=== PATIENT | male | born 1950 | race Caucasian/White ===

== ENCOUNTER 2018-11-09 08:10 | Outpatient (CLI) | payer MEDICARE, BC ==
--- NOTE | 2018-11-09 10:07 | ULT ---
THYROID ULTRASOUND: Date: 11/09/18 HISTORY: Large lump on neck. FINDINGS: Real-time imaging of the right and left lobes of the gland were performed. The right lobe measures 1. 3 x 1.3 x 4.5 cm. The left lobe measures 4.3 x 5.2 x 6.3 cm. The left lobe of the gland is largely re placed by a very large 4.1 x 5.2 cm nodule. The nodule has a solid component and an internal cystic c omponent. On the right side, there are some small, subcentimeter nodules present. The large left lobe thyroid nodule has echogenicity similar to the residual gland. It is wider than t all with smooth borders and no definite calcifications. It would correspond to a TIRADS 3 lesion. IMPRESSION: TIRADS 3 left lobe thyroid node, basically replacing the entire gland. It has a prominent internal cy stic component which is probably related to degeneration. For a nodule of this size, the recommendati on is fine needle aspiration. POS: [facility]
== END 2018-11-09 08:11 | disposition home or self-care (01) ==
LOC: SCSULT 08:10 → EDUNIT# 08:10 → SCSULT 08:11
PROVIDERS: ATTEND Specialist
DX: E01.0 Iodine-deficiency related diffuse (endemic) goiter (principal); E04.1 Nontoxic single thyroid nodule
CPT/HCPCS: 76536

== ENCOUNTER 2019-01-17 09:59 | Day surgery (SDC) | payer MEDICARE, BC ==
[2019-01-16 09:42] VITALS: BMI 34.7
[2019-01-17 10:49] LABS: Hemoglobin 15.3 g/dL (14.0-18.0)
[2019-01-17 11:08] LABS: Anion Gap 13 mmol/L (10-20); BUN (Urea Nitrogen) 12 mg/dL (8.4-25.7); Calc. Creatinine Clearance 155 mL/min (70-130); Calcium 9.2 mg/dL (7.8-10.44); Carbon Dioxide 27 mmol/L (23-31); Chloride 106 mmol/L (98-107); Estimated GFR-MDRD Greater than 90; Glucose 120 mg/dL (80-115); Potassium 4.6 mmol/L (3.5-5.1); Sodium 141 mmol/L (136-145)
[2019-01-17] MEDS ORDERED: Lidocaine 1% w/Epinephrine 1:100K 20 ML VIAL ONE (12:06)
[2019-01-17] MEDS ORDERED: Fentanyl 250 MCG/5 ML VIAL ONE (12:15)
[2019-01-17] MEDS ORDERED: HYDROmorphone 0.5 MG/0.5 ML SYRINGE ONE (13:44)
[2019-01-17] MEDS ORDERED: PROPOFOL 20 ML ONE (13:58)
[2019-01-17] MEDS ORDERED: PHENYLEPHRINE-NS 100 MCG/ML 10 ML SYRINGE ONE (14:53)
[2019-01-17] MEDS ORDERED: Dexamethasone 20 MG/5 ML VIAL ONE (14:53)
[2019-01-17] MEDS ORDERED: PROPOFOL 200 MG/20 ML VIAL ONE (14:53)
[2019-01-17] MEDS ORDERED: Succinylcholine Chloride 20 MG/ML 10 ml SYRINGE FS ONE (14:53)
[2019-01-17] MEDS ORDERED: ePHEDrine/0.9% NaCl/PF SYRINGE 50 mg/10 ml ONE (14:53)
[2019-01-17] MEDS ORDERED: Ondansetron PF 4 MG/2 ML Vial ONE (14:53)
[2019-01-17] MEDS ORDERED: Esmolol 100 MG/10 ML VIAL ONE (14:53)
[2019-01-17] MEDS ORDERED: Rocuronium Bromide 10 MG/ML (10ML VIAL) ONE (14:53)
[2019-01-17] MEDS ORDERED: Lidocaine 1% PF 5 ML VIAL ONE (14:53)
[2019-01-17] MEDS ORDERED: Fentanyl 100 MCG/2 ML VIAL ONE ×3 (15:07→16:12)
[2019-01-17] MEDS ORDERED: Labetalol HCl 100 MG/20 ML VIAL ONE (16:04)
[2019-01-17] MEDS ORDERED: traMADol HCl 50 MG TAB ONE (17:25)
--- NOTE | 2019-01-18 14:10 | OP ---
DATE OF PROCEDURE: PREOPERATIVE DIAGNOSIS: Left thyroid mass. POSTOPERATIVE DIAGNOSIS: Left thyroid mass. PROCEDURES PERFORMED: 1. Left thyroid lobectomy. 2. Laryngeal nerve monitoring for 1 hour. PROCEDURE: The patient was identified, brought to the operating room, placed on the operating table in supine position. General endotracheal anesthesia was obtained. The patient was positioned for surgery. The neck was prepped and draped and the topical anatomy was delineated. The intended line of incision was demarcated with a marking pen and the area was infiltrated with 1% lidocaine with 1:100,000 epinephrine. We then made an incision with a 15 blade, carried down through the skin and subcutaneous tissues. The platysma was then transected and subplatysmal flaps were elevated inferiorly and superiorly. A self-retaining retractor was then placed and the strap muscles were divided in midline and attention was turned to the left thyroid lobe. It was markedly enlarged carefully. The strap muscles were dissected from the thyroid capsule. The inferior and superior vessels and middle thyroid vein were demarcated and suture ligated these structures and we have elected the large thyroid medially as this was identified and dissected free from the thyroid capsule. The thyroid was then rotated and delivered out of the wound and rotated medially as dissection continued along the pretracheal plane and thyroid ligament. The isthmus was suture ligated and the large lobe was evaluation. We then obtained hemostasis with bipolar cautery muscle was reapproximated skin with closed with 6-0 sterile dressing was applied. The patient was awakened and extubated and taken to recovery room in stable condition. The patient tolerated the procedure . Job ID: [id number]
== END 2019-01-17 18:15 | disposition home or self-care (01) ==
LOC: SDC 09:59
PROVIDERS: ATTEND Specialist
PROC: 0GBG0ZZ Excision of Left Thyroid Gland Lobe, Open Approach (ICD-10-PCS; principal; 2019-01-17)
DX: D34 Benign neoplasm of thyroid gland (principal); I48.91 Unspecified atrial fibrillation; I25.10 Atherosclerotic heart disease of native coronary artery without angina pectoris; M06.9 Rheumatoid arthritis, unspecified; E78.5 Hyperlipidemia, unspecified; N40.0 Benign prostatic hyperplasia without lower urinary tract symptoms; R73.03 Prediabetes; Z79.01 Long term (current) use of anticoagulants; Z79.84 Long term (current) use of oral hypoglycemic drugs; Z79.899 Other long term (current) drug therapy; Z88.2 Allergy status to sulfonamides
CPT/HCPCS: 36415; 80048; 85014; 85018; 88307; J0131; J1100; J1170; J2001; J2405; J2704; J3010

== ENCOUNTER 2022-04-19 11:29 | Outpatient (CLI) | payer MEDICARE, BC ==
[2022-04-19 12:49] LABS: Hemoglobin 15.7 g/dL (13.5-17.5); Mean Corpuscular HGB CONC 33.8 g/dL (32.0-36.0); Mean Corpuscular Hemoglobin 29.1 pg (27.0-33.0); Mean Corpuscular Volume 85.9 fl (81.2-95.1); Mean Platelet Volume 9.8 fl (7.4-10.4); Platelet Count 229 10x3/uL (150-450); RBC Distribution Width 13.1 % (11.5-14.5); White Blood Cell (WBC) Count 6.7 10x3/uL (3.5-10.5)
[2022-04-19 13:04] LABS: Anion Gap 13 mmol/L (10-20); BUN (Urea Nitrogen) 14 mg/dL (8.4-25.7); Calc. Creatinine Clearance 0 mL/min (70-130); Calcium 9.5 mg/dL (7.8-10.44); Carbon Dioxide 27 mmol/L (23-31); Chloride 102 mmol/L (98-107); Estimated GFR 85; Glucose 118 mg/dL (83-110); Potassium 4.3 mmol/L (3.5-5.1); Sodium 138 mmol/L (136-145)
== END 2022-04-19 11:30 | disposition home or self-care (01) ==
LOC: LABBT 11:29
PROVIDERS: ATTEND Specialist
DX: Z01.818 Encounter for other preprocedural examination (principal); K11.8 Other diseases of salivary glands; R22.1 Localized swelling, mass and lump, neck
CPT/HCPCS: 80048; 85027; 93005; 93010

== ENCOUNTER 2022-04-21 08:12 | Day surgery (SDC) | payer MEDICARE, BC ==
[2022-04-19 12:37] VITALS: BMI 35.3
[2022-04-21] MEDS ORDERED: fentaNYL PF 100 MCG/2 ML SYRINGE ONE (09:46)
[2022-04-21] MEDS ORDERED: EPINEPHrine 1 MG/ML AMP ONE (11:19)
[2022-04-21] MEDS ORDERED: Lidocaine 1% (PF) 30 ML VIAL ONE (11:19)
[2022-04-21] MEDS ORDERED: Esmolol 100 MG/10 ML VIAL ONE (11:46)
[2022-04-21] MEDS ORDERED: PROPOFOL 200 MG/20 ML VIAL ONE (11:46)
[2022-04-21] MEDS ORDERED: Glycopyrrolate 0.2 MG/ML 5 ML SYRINGE ONE (11:46)
[2022-04-21] MEDS ORDERED: Lidocaine 1% PF 5 ML VIAL ONE (11:46)
[2022-04-21] MEDS ORDERED: NEOSTIGMINE 3 MG/3 ML SYR 3 MG/3 ML SYRINGE ONE (11:46)
[2022-04-21] MEDS ORDERED: Rocuronium Bromide 10 MG/ML (10ML VIAL) ONE (11:46)
[2022-04-21] MEDS ORDERED: SUGAMMADEX SODIUM 200 MG/2 ML VIAL ONE (12:52)
[2022-04-21] MEDS ORDERED: Fentanyl 100 MCG/2 ML VIAL ONE (13:21)
[2022-04-21] MEDS ORDERED: traMADol HCl 50 MG TAB ONE ×2 (14:54→15:39)
[2022-04-21] MEDS ORDERED: Sodium Chloride 0.9% 0 ML ONE (14:54)
[2022-04-21] MEDS ORDERED: Dexamethasone 4 mg/ml Vial ONE (14:54)
== END 2022-04-21 16:34 | disposition home or self-care (01) ==
LOC: SDC 08:12
PROVIDERS: ATTEND Specialist
PROC: 0CJS8ZZ Inspection of Larynx, Via Natural or Artificial Opening Endoscopic (ICD-10-PCS; principal; 2022-04-21)
PROC: 0C983ZX Drainage of Right Parotid Gland, Percutaneous Approach, Diagnostic (ICD-10-PCS; 2022-04-21)
PROC: 07B20ZX Excision of Left Neck Lymphatic, Open Approach, Diagnostic (ICD-10-PCS; 2022-04-21)
DX: C77.0 Secondary and unspecified malignant neoplasm of lymph nodes of head, face and neck (principal); C73 Malignant neoplasm of thyroid gland; K11.8 Other diseases of salivary glands; E89.0 Postprocedural hypothyroidism; Z79.01 Long term (current) use of anticoagulants; Z79.84 Long term (current) use of oral hypoglycemic drugs; Z79.899 Other long term (current) drug therapy; Z88.2 Allergy status to sulfonamides
CPT/HCPCS: 10021; 31526; 38510; C1889; 88173; 88184; 88185; 88305; J0171; J1100; J2001; J2704; J3010; J3490

== ENCOUNTER 2022-06-10 00:34 | Inpatient (IN) | payer MEDICARE, BC ==
[2022-06-10] MEDS ORDERED: Diltiazem 125 MG/25 ML SDV ONE (00:41)
[2022-06-10] MEDS ORDERED: Ondansetron PF 4 MG/2 ML Vial IVP PRN (02:30)
[2022-06-10] MEDS ORDERED: Acetaminophen 325 MG TAB PO PRN (02:30)
[2022-06-10] MEDS ORDERED: Diltiazem 125 MG in Sodium Chloride 0.9% 100 ML IVPB SCH ×2 (02:30→11:01)
[2022-06-10] MEDS ORDERED: Dextrose 50% Abboject 50 ML SYRINGE SLOW IVP PRN (02:30)
[2022-06-10] MEDS ORDERED: Dextrose 5% in Water 1,000 ML IV PRN (02:30)
[2022-06-10] MEDS ORDERED: HumaLOG 300 UNITS/3 ML VIAL SC PRN ×2 (02:30)
[2022-06-10] MEDS ORDERED: Ondansetron ODT 4 MG TAB PO PRN (02:30)
[2022-06-10] MEDS ORDERED: Magnesium 2 GM/50 ML(in water) 2 GM in Premix Bag 1 BAG IVPB SCH (02:30)
[2022-06-10 03:20] LABS: #Eosinphils 0.2 thou/uL (0.0-0.7); #Lymphocytes 1.6 thou/uL (1.20-3.40); #Monocytes 1.1 thou/uL (0.11-0.59); #Neutrophils 9.8 thou/uL (1.40-6.50); %Basophils 0.2 % (0.0-1.0); %Eosinophils 1.5 % (0.0-10.0); %Lymphocytes 12.4 % (21.0-51.0); %Monocytes 8.5 % (0.0-10.0); %Neutrophils 77.4 % (42.0-75.0); Hemoglobin 14.4 g/dL (14.0-18.0); Mean Corpuscular HGB CONC 35.5 g/dL (32.0-36.0); Mean Corpuscular Hemoglobin 31.8 pg (27.0-31.0); Mean Corpuscular Volume 89.6 fl (78.0-98.0); Mean Platelet Volume 7.3 fL (7.4-10.4); Platelet Count 230 10x3/uL (130-400); RBC Distribution Width 12.3 % (11.5-14.5); Red Blood Cell (RBC) Count 4.53 mill/uL (4.70-6.10); White Blood Cell (WBC) Count 12.6 10x3/uL (4.8-10.8)
[2022-06-10 03:59] VITALS: BMI 34.8
[2022-06-10 04:00] LABS: ALT (SGPT) 18 U/L (8-55); AST (SGOT) 14 U/L (5-34); Albumin 3.7 g/dL (3.4-4.8); Alkaline Phosphatase 77 U/L (40-110); Anion Gap 17 mmol/L (10-20); BUN (Urea Nitrogen) 17 mg/dL (8.4-25.7); Bilirubin, Total 2.1 mg/dL (0.2-1.2); Calc. Creatinine Clearance 117 mL/min (70-130); Calcium 8.5 mg/dL (7.8-10.44); Carbon Dioxide 24 mmol/L (23-31); Chloride 99 mmol/L (98-107); Estimated GFR 80; Globulin 3.1 g/dL (2.4-3.5); Glucose 177 mg/dL (83-110); Potassium 3.9 mmol/L (3.5-5.1); Protein, Total 6.8 g/dL (5.8-8.1); Sodium 136 mmol/L (136-145)
[2022-06-10 05:14] LABS: Troponin I Less than 0.010 ng/mL (< 0.028)
[2022-06-10 08:17] LABS: Troponin I Less than 0.010 ng/mL (< 0.028)
[2022-06-10] MEDS ORDERED: Mag-Al 1200 mg/1200 mg/30 ML UDCUP PO PRN (10:55)
[2022-06-10 11:35] LABS: Magnesium 1.7 mg/dL (1.6-2.6); Phosphorus 3.9 mg/dL (2.3-4.7)
[2022-06-10] MEDS: Diltiazem HCl 125 MG, Admixture Fee 1 EACH in Sodium Chloride 0.9% 100 ML IVPB SCH ×2 (11:50→17:01)
[2022-06-10] MEDS: NS 0.9% w/ 20 MEQ KCL 1,000 ML/1,000 ML BAG IV SCH (13:24)
[2022-06-10] MEDS ORDERED: Rivaroxaban 10 MG TAB PO SCH (18:00)
[2022-06-10] MEDS ORDERED: Atorvastatin Calcium 20 MG TAB PO SCH (21:00)
[2022-06-10] MEDS ORDERED: Diltiazem HCl 125 MG, Admixture Fee 1 EACH in Sodium Chloride 0.9% 100 ML IVPB SCH (23:00)
[2022-06-11] MEDS: NS 0.9% w/ 20 MEQ KCL 1,000 ML/1,000 ML BAG IV SCH (02:44)
[2022-06-11 05:15] LABS: #Eosinphils 0.3 thou/uL (0.0-0.7); #Lymphocytes 1.5 thou/uL (1.20-3.40); #Monocytes 0.7 thou/uL (0.11-0.59); #Neutrophils 6.1 thou/uL (1.40-6.50); %Basophils 0.3 % (0.0-1.0); %Lymphocytes 16.8 % (21.0-51.0); %Monocytes 8.6 % (0.0-10.0); %Neutrophils 70.3 % (42.0-75.0); Hemoglobin 12.4 g/dL (14.0-18.0); Mean Corpuscular HGB CONC 34.4 g/dL (32.0-36.0); Mean Corpuscular Hemoglobin 31.1 pg (27.0-31.0); Mean Corpuscular Volume 90.4 fl (78.0-98.0); Mean Platelet Volume 7.3 fL (7.4-10.4); Platelet Count 213 10x3/uL (130-400); RBC Distribution Width 12.2 % (11.5-14.5); Red Blood Cell (RBC) Count 3.98 mill/uL (4.70-6.10); White Blood Cell (WBC) Count 8.7 10x3/uL (4.8-10.8)
[2022-06-11 05:32] LABS: ALT (SGPT) 15 U/L (8-55); AST (SGOT) 11 U/L (5-34); Albumin 3.4 g/dL (3.4-4.8); Alkaline Phosphatase 71 U/L (40-110); Anion Gap 12 mmol/L (10-20); BUN (Urea Nitrogen) 12 mg/dL (8.4-25.7); Bilirubin, Total 1.3 mg/dL (0.2-1.2); Calc. Creatinine Clearance 137 mL/min (70-130); Calcium 8.2 mg/dL (7.8-10.44); Carbon Dioxide 25 mmol/L (23-31); Chloride 103 mmol/L (98-107); Estimated GFR 93; Globulin 2.8 g/dL (2.4-3.5); Glucose 146 mg/dL (83-110); Magnesium 1.9 mg/dL (1.6-2.6); Potassium 4.2 mmol/L (3.5-5.1); Protein, Total 6.2 g/dL (5.8-8.1); Sodium 136 mmol/L (136-145)
[2022-06-11] MEDS ORDERED: Levothyroxine Sodium 100 MCG TAB PO SCH ×2 (06:00)
[2022-06-11 10:41] LABS: Free T4 (Free Thyroxine) 1.36 ng/dL (0.70-1.48); Thyroid Stimulating Hormone 2.4106 uIU/mL (0.35-4.94)
[2022-06-11 11:26] VITALS: BP 117/68; TEMP 96.7
[2022-06-11] MEDS ORDERED: Rivaroxaban 10 MG TAB PO SCH (17:00)
== END 2022-06-11 15:13 | disposition home or self-care (01) | DRG 309 ==
LOC: ERS 00:34 → 2NO 02:35 → OBSVTOIN 02:35
PROVIDERS: ADMIT Internal Medicine; ATTEND Internal Medicine
DX: I48.21 Permanent atrial fibrillation (principal); N17.9 Acute kidney failure, unspecified; E78.5 Hyperlipidemia, unspecified; E89.0 Postprocedural hypothyroidism; I10 Essential (primary) hypertension; E11.9 Type 2 diabetes mellitus without complications; D72.829 Elevated white blood cell count, unspecified; I45.10 Unspecified right bundle-branch block; E86.0 Dehydration; I25.10 Atherosclerotic heart disease of native coronary artery without angina pectoris; I44.4 Left anterior fascicular block; Z85.850 Personal history of malignant neoplasm of thyroid; Z88.2 Allergy status to sulfonamides; Z79.899 Other long term (current) drug therapy; Z79.84 Long term (current) use of oral hypoglycemic drugs; Z79.01 Long term (current) use of anticoagulants; Z90.49 Acquired absence of other specified parts of digestive tract; Z87.891 Personal history of nicotine dependence
CPT/HCPCS: 36415; 36416; 80053; 83735; 84100; 84145; 84439; 84443; 84484; 85025; 86140; 93005; J3475; J3480; J3490